=== PATIENT | female | born 1935 | race Caucasian/White ===

== ENCOUNTER 2016-07-02 23:07 | Inpatient (IN) | payer MEDICARE, MEDICAID ==
[~2016-07-02] VITALS: Ht 160 cm; Wt 64.0 kg
[~2016-07-02 23:07] MED LIST: ALEN70TA48 PO; CARV25TA47 PO; DONE5TAB3 PO; ESCI5TAB10 PO; FERR325T30 PO; GLYB5TAB4 PO; KLOR CON PO; LEVO50CA2 PO; LISI20TA PO; LOVA10TA54 PO; RIVA20TA PO
[2016-07-03 01:10] LABS: BASOPHILS % 0.3 % (0.0-2.0); DIFFERENTIAL COMMENT 0; EOSINOPHILS % 2.3 % (0.0-5.0); HEMATOCRIT. 27.2 % (36.0-48.0); HEMOGLOBIN. 8.9 g/dL (12.0-16.0); LYMPHOCYTES % 9.6 % (20.0-50.0); MEAN CORPUSCULAR HGB CONC 32.9 g/dL (31.0-37.0); MEAN CORPUSCULAR VOLUME 79.2 fL (81.0-99.0); MEAN PLATELET VOLUME 6.8 fl (7.4-10.4); NEUTROPHILS % 77.8 % (40.0-76.0); PLATELET 155 x1000/uL (130-400); RED BLOOD CELL COUNT 3.44 mill/uL (4.2-5.4); RED CELL DISTRIBUTION WIDTH 15.3 % (11.6-14.6); WHITE BLOOD COUNT 6.3 x1000/uL (4.5-11.0)
[2016-07-03 01:21] LABS: INR 1.3; PARTIAL THROMBOPLASTIN TIME 27.8 sec (24.0-34.0); PROTHROMBIN TIME 13.3 sec
[2016-07-03 01:25] LABS: ALANINE AMINOTRANSFERASE 18 IU/L (13-61); ALBUMIN 3.7 g/dL (3.4-5.0); ANION GAP 14; CALCIUM 9.2 mg/dL (8.5-10.1); CARBON DIOXIDE 35 mEq/L (21-32); CHLORIDE 91 mEq/L (98-107); INDEX HEMOLYSI 1 (1-3); INDEX ICTERIC 1 (1-4); INDEX LIPEMIC 1 (1-3); LIPASE 835 IU/L (73-393); TROPONIN I 0.05 ng/mL (0.00-0.04); eGFR 24 mL/min (>60)
[2016-07-03 02:06] LABS: UREA NITROGEN BLOOD 114 mg/dL (7-21)
[2016-07-03 09:25] VITALS: BP 105/76
[2016-07-03 09:30] VITALS: BP 105/76
[2016-07-03] MEDS ORDERED: DIPHENHYDRAMINE 50MG/ML VIAL IV PRN (11:15)
[2016-07-03] MEDS ORDERED: MAGNESIUM/ALUMINUM HYDROXIDE/SIMETHICONE 30ML UDC PO PRN (11:15)
[2016-07-03] MEDS ORDERED: CLONIDINE 0.1MG TABLET PO PRN (11:15)
[2016-07-03] MEDS ORDERED: ONDANSETRON HCL 4MG/2ML VIAL IV PRN (11:15)
[2016-07-03] MEDS ORDERED: DOCUSATE SODIUM 100MG CAPSULE PO PRN (11:15)
[2016-07-03] MEDS ORDERED: ACETAMINOPHEN 650MG/20.3ML UDC GT PRN (11:15)
[2016-07-03] MEDS ORDERED: FURO-151 PO ×2 (11:28→15:35)
[2016-07-03] MEDS ORDERED: GLIP5TAB12 PO (11:28)
[2016-07-03] MEDS ORDERED: METO2.5T14 PO (11:28)
[2016-07-03] MEDS ORDERED: APIX2.5T PO (11:28)
[2016-07-03 12:29] VITALS: BP 105/58
[2016-07-03] MEDS: SODIUM CHLORIDE 0.45% 1,000 ML IV SCH (13:17)
[2016-07-03 15:02] LABS: CLARITY URINE CLEAR (CLEAR); COLOR URINE YELLOW (YELLOW); GLUCOSE URINE NEGATIVE (NEGATIVE); KETONES URINE NEGATIVE (NEGATIVE); LEUKOCYTE ESTERASE URINE NEGATIVE (NEGATIVE); NITRITE URINE NEGATIVE (NEGATIVE); OCCULT BLOOD URINE NEGATIVE (NEGATIVE); PROTEIN URINE NEGATIVE (NEGATIVE); SPECIFIC GRAVITY URINE 1.012 (1.005-1.030); UROBILINOGEN URINE 0.2 E.U./dL (0.2-1.0)
[2016-07-03] MEDS ORDERED: FUROSEMIDE 40MG TABLET PO SCH (15:15)
[2016-07-03] MEDS: LISINOPRIL 20MG TABLET PO SCH (15:15)
[2016-07-03] MEDS ORDERED: DEXTROSE 50% WATER 50ML SYRINGE IV PRN (15:15)
[2016-07-03 16:00] VITALS: BP 104/71
[2016-07-03] MEDS: LEVOTHYROXINE SODIUM 50MCG TABLET PO SCH (16:23)
[2016-07-03] MEDS: BLOOD SUGAR DIAGNOSTIC STRIP TEST SCH ×2 (16:23→21:20)
[2016-07-03] MEDS: APIXABAN 2.5 MG TABLET PO SCH (18:58)
[2016-07-03] MEDS: INSULIN LISPRO 100 UNITS/ML SUBCUT SCH ×2 (18:59→21:29)
[2016-07-03 20:00] VITALS: BP 105/51
[2016-07-04] VITALS: BP 95/58
[2016-07-04 04:00] VITALS: BP 93/61
[2016-07-04] MEDS: INSULIN LISPRO 100 UNITS/ML SUBCUT SCH (05:53)
[2016-07-04] MEDS: BLOOD SUGAR DIAGNOSTIC STRIP TEST SCH ×2 (05:53→11:16)
[2016-07-04] MEDS: LEVOTHYROXINE SODIUM 50MCG TABLET PO SCH (06:40)
[2016-07-04] MEDS ORDERED: GLIPIZIDE 5MG TABLET PO SCH (06:45)
[2016-07-04 08:53] VITALS: BP 103/58
[2016-07-04 08:56] LABS: BASOPHILS % 0.7 % (0.0-2.0); DIFFERENTIAL COMMENT 0; HEMATOCRIT. 29.3 % (36.0-48.0); HEMOGLOBIN. 9.6 g/dL (12.0-16.0); LYMPHOCYTES % 11.3 % (20.0-50.0); MEAN CORPUSCULAR HEMOGLOBIN 25.9 pg (28.0-32.0); MEAN CORPUSCULAR HGB CONC 32.7 g/dL (31.0-37.0); MEAN PLATELET VOLUME 7.2 fl (7.4-10.4); MONOCYTES % 8.9 % (2.0-8.0); NEUTROPHILS % 77.1 % (40.0-76.0); PLATELET 175 x1000/uL (130-400); RED BLOOD CELL COUNT 3.72 mill/uL (4.2-5.4); RED CELL DISTRIBUTION WIDTH 14.9 % (11.6-14.6); WHITE BLOOD COUNT 6.3 x1000/uL (4.5-11.0)
[2016-07-04] MEDS ORDERED: FUROSEMIDE 40MG TABLET PO SCH (09:00)
[2016-07-04 09:19] LABS: CALCIUM 9.5 mg/dL (8.5-10.1)
[2016-07-04] MEDS: APIXABAN 2.5 MG TABLET PO SCH (09:35)
[2016-07-04] MEDS: LISINOPRIL 20MG TABLET PO SCH (09:36)
[2016-07-04] MEDS: SODIUM CHLORIDE 0.45% 1,000 ML IV SCH (10:00)
[2016-07-04] MEDS ORDERED: FURO40TA5 PO (10:47)
[2016-07-04 12:03] VITALS: BP 103/58
[2016-07-04 12:30] VITALS: BP 121/80
== END 2016-07-04 13:15 | disposition home or self-care (01) | DRG 314 ==
LOC: ER 23:11 → 5WST 07-03 05:00 → SUPCPDRO 07-03 05:59
PROVIDERS: ADMIT Family Medicine Adult Medicine; ATTEND Family Medicine Adult Medicine
DX: I95.9 Hypotension, unspecified (principal); K85.90 Acute pancreatitis without necrosis or infection, unspecified; I13.0 Hypertensive heart and chronic kidney disease with heart failure and stage 1 through stage 4 chronic kidney disease, or unspecified chronic kidney disease; N17.9 Acute kidney failure, unspecified; E87.3 Alkalosis; E87.1 Hypo-osmolality and hyponatremia; R18.8 Other ascites; I42.9 Cardiomyopathy, unspecified; N18.3 Chronic kidney disease, stage 3 (moderate); I25.10 Atherosclerotic heart disease of native coronary artery without angina pectoris; D64.9 Anemia, unspecified; M19.90 Unspecified osteoarthritis, unspecified site; E11.22 Type 2 diabetes mellitus with diabetic chronic kidney disease; I25.5 Ischemic cardiomyopathy; I27.2 Other secondary pulmonary hypertension; I27.81 Cor pulmonale (chronic); I48.2 Chronic atrial fibrillation; I50.9 Heart failure, unspecified; Z79.01 Long term (current) use of anticoagulants; I25.2 Old myocardial infarction; Z95.810 Presence of automatic (implantable) cardiac defibrillator; Z28.82 Immunization not carried out because of caregiver refusal; K76.9 Liver disease, unspecified; T46.5X5A Adverse effect of other antihypertensive drugs, initial encounter
CPT/HCPCS: 36415; 71010; 76770; 80048; 80053; 81003; 82962; 83690; 84484; 85025; 85610; 85730; 87086; 93005; 99285; J1815

== ENCOUNTER 2017-01-27 12:25 | Inpatient (IN) | payer MEDICARE, MEDICAID ==
[~2017-01-27] VITALS: Ht 152.4 cm; Wt 64.1 kg
[~2017-01-27 12:25] MED LIST changes: +APIX2.5T PO; -DONE5TAB3 PO; +DONE5TAB7 PO; +FURO20TA4 PO; +FURO40TA5 PO; +GLIP5TAB12 PO; +METO2.5T14 PO; +SITA50TA3 PO
[2017-01-27 13:08] LABS: BASOPHILS % 0.6 % (0.0-2.0); EOSINOPHILS % 2.1 % (0.0-5.0); HEMATOCRIT. 30.2 % (36.0-48.0); HEMOGLOBIN. 9.7 g/dL (12.0-16.0); LYMPHOCYTES % 10.7 % (20.0-50.0); MEAN CORPUSCULAR HEMOGLOBIN 25.9 pg (28.0-32.0); MEAN CORPUSCULAR VOLUME 80.2 fL (81.0-99.0); MEAN PLATELET VOLUME 6.6 fl (7.4-10.4); MONOCYTES % 7.7 % (2.0-8.0); NEUTROPHILS % 78.9 % (40.0-76.0); PLATELET 181 x1000/uL (130-400); RED BLOOD CELL COUNT 3.76 mill/uL (4.2-5.4)
[2017-01-27 13:17] LABS: INR 1.2; PROTHROMBIN TIME 12.3 sec (9.4-11.6)
[2017-01-27 13:22] LABS: CARBON DIOXIDE 36 mEq/L (21-32); CHLORIDE 83 mEq/L (98-107)
[2017-01-27 13:23] LABS: TROPONIN I 0.05 ng/mL (0.00-0.04)
[2017-01-27] MEDS ORDERED: FUROSEMIDE 40MG/4ML VIAL IVP ONE (15:00)
[2017-01-27] MEDS ORDERED: DOBUTAMINE 250MG PREMIX 250 ML IV SCH (15:15)
[2017-01-27 16:53] VITALS: BP 100/54
[2017-01-27] MEDS ORDERED: DOPAMINE 800MG PREMIX 250 ML IV SCH (18:00)
[2017-01-27] MEDS: CARVEDILOL 3.125 MG TABLET PO SCH (18:50)
[2017-01-27] MEDS: FUROSEMIDE 40MG/4ML VIAL IVP SCH (18:50)
[2017-01-27] MEDS ORDERED: ONDANSETRON HCL 4MG/2ML VIAL IV PRN (19:00)
[2017-01-27 19:01] VITALS: BP 118/62
[2017-01-27] MEDS ORDERED: TRAMADOL 50MG TABLET PO PRN (19:06)
[2017-01-27] MEDS ORDERED: DEXTROSE 50% WATER 50ML SYRINGE IV PRN (19:30)
[2017-01-27 20:09] VITALS: BP 119/53
[2017-01-27 21:00] VITALS: BP 122/68
[2017-01-27] MEDS: BLOOD SUGAR DIAGNOSTIC STRIP TEST SCH (21:00)
[2017-01-27] MEDS: INSULIN LISPRO 100 UNITS/ML SUBCUT SCH (21:04)
[2017-01-27 22:00] VITALS: BP 117/75
[2017-01-27 23:00] VITALS: BP 111/59
[2017-01-28] VITALS (19 sets, daily range): BP systolic 89–129; BP diastolic 26–73
[2017-01-28] MEDS: BLOOD SUGAR DIAGNOSTIC STRIP TEST SCH ×4 (05:53→21:09)
[2017-01-28] MEDS: OMEPRAZOLE 20MG CAPSULE EXTENDED RELEASE PO SCH (05:53)
[2017-01-28 07:06] LABS: BASOPHILS % 0.7 % (0.0-2.0); EOSINOPHILS % 2.2 % (0.0-5.0); HEMATOCRIT. 28.1 % (36.0-48.0); HEMOGLOBIN. 9.3 g/dL (12.0-16.0); LYMPHOCYTES % 16.1 % (20.0-50.0); MEAN CORPUSCULAR HEMOGLOBIN 26.4 pg (28.0-32.0); MEAN CORPUSCULAR VOLUME 79.5 fL (81.0-99.0); MEAN PLATELET VOLUME 7.2 fl (7.4-10.4); MONOCYTES % 11.2 % (2.0-8.0); NEUTROPHILS % 69.8 % (40.0-76.0); PLATELET 177 x1000/uL (130-400); RED BLOOD CELL COUNT 3.54 mill/uL (4.2-5.4); RED CELL DISTRIBUTION WIDTH 14.8 % (11.6-14.6)
[2017-01-28] MEDS: INSULIN LISPRO 100 UNITS/ML SUBCUT SCH ×4 (07:20→21:12)
[2017-01-28 07:31] LABS: TROPONIN I 0.06 ng/mL (0.00-0.04)
[2017-01-28] MEDS: CARVEDILOL 3.125 MG TABLET PO SCH (08:20)
[2017-01-28] MEDS: FUROSEMIDE 40MG/4ML VIAL IVP SCH ×2 (08:20→17:15)
[2017-01-28 10:15] LABS: T4 FREE 1.32 ng/dL (0.76-1.46)
[2017-01-28] MEDS ORDERED: IPRATROPIUM BROMIDE (0.02%) 0.5MG/2.5ML NEB HHN PRN (10:30)
[2017-01-28] MEDS: LEVOTHYROXINE SODIUM 75MCG TABLET PO SCH (11:01)
[2017-01-28] MEDS: POTASSIUM CHLORIDE 20MEQ TABLET SR PO SCH (11:01)
[2017-01-28] MEDS: DOBUTAMINE 250MG PREMIX 250 ML IV SCH (11:14)
[2017-01-28] MEDS: DOPAMINE 800MG PREMIX 250 ML IV SCH (11:23)
[2017-01-28] MEDS: ENOXAPARIN 30MG/0.3ML SYR SUBCUT SCH (13:03)
[2017-01-28] MEDS ORDERED: FUROSEMIDE 20MG/2ML VIAL IVP SCH (17:15)
[2017-01-28] MEDS: FERROUS SULFATE 325MG TABLET PO SCH (17:15)
[2017-01-28] MEDS: ATORVASTATIN CALCIUM 10MG TABLET PO SCH (21:08)
[2017-01-29] VITALS (20 sets, daily range): BP systolic 93–125; BP diastolic 41–65
[2017-01-29 05:56] LABS: BASOPHILS % 0.4 % (0.0-2.0); EOSINOPHILS % 1.2 % (0.0-5.0); HEMATOCRIT. 26.5 % (36.0-48.0); HEMOGLOBIN. 8.7 g/dL (12.0-16.0); LYMPHOCYTES % 11.5 % (20.0-50.0); MEAN CORPUSCULAR HEMOGLOBIN 26.4 pg (28.0-32.0); MEAN CORPUSCULAR VOLUME 79.8 fL (81.0-99.0); MEAN PLATELET VOLUME 7.1 fl (7.4-10.4); MONOCYTES % 10.3 % (2.0-8.0); NEUTROPHILS % 76.6 % (40.0-76.0); PLATELET 167 x1000/uL (130-400); RED BLOOD CELL COUNT 3.32 mill/uL (4.2-5.4); RED CELL DISTRIBUTION WIDTH 14.9 % (11.6-14.6)
[2017-01-29] MEDS: OMEPRAZOLE 20MG CAPSULE EXTENDED RELEASE PO SCH (06:22)
[2017-01-29] MEDS: LEVOTHYROXINE SODIUM 75MCG TABLET PO SCH (06:22)
[2017-01-29] MEDS: BLOOD SUGAR DIAGNOSTIC STRIP TEST SCH ×4 (06:24→21:10)
[2017-01-29] MEDS: FERROUS SULFATE 325MG TABLET PO SCH ×2 (08:09→17:34)
[2017-01-29] MEDS: FUROSEMIDE 40MG/4ML VIAL IVP SCH (08:10)
[2017-01-29] MEDS: DONEPEZIL HCL 5MG TABLET PO SCH (08:10)
[2017-01-29] MEDS: POTASSIUM CHLORIDE 20MEQ TABLET SR PO SCH (08:10)
[2017-01-29] MEDS: INSULIN LISPRO 100 UNITS/ML SUBCUT SCH ×4 (08:11→21:20)
[2017-01-29] MEDS: ENOXAPARIN 30MG/0.3ML SYR SUBCUT SCH (10:02)
[2017-01-29] MEDS: DOBUTAMINE 250MG PREMIX 250 ML IV SCH (13:38)
[2017-01-29 17:48] LABS: CLARITY URINE CLEAR (CLEAR); COLOR URINE YELLOW (YELLOW); GLUCOSE URINE NEGATIVE (NEGATIVE); KETONES URINE NEGATIVE (NEGATIVE); LEUKOCYTE ESTERASE URINE NEGATIVE (NEGATIVE); NITRITE URINE NEGATIVE (NEGATIVE); OCCULT BLOOD URINE NEGATIVE (NEGATIVE); PROTEIN URINE NEGATIVE (NEGATIVE); UROBILINOGEN URINE 0.2 E.U./dL (0.2-1.0)
[2017-01-29 18:41] LABS: HEMATOCRIT 25.7 % (36.0-48.0); HEMOGLOBIN 8.4 g/dL (12.0-16.0)
[2017-01-29] MEDS: ATORVASTATIN CALCIUM 10MG TABLET PO SCH (21:21)
[2017-01-30] VITALS (12 sets, daily range): BP systolic 72–125; BP diastolic 40–83
[2017-01-30] MEDS: DOBUTAMINE 250MG PREMIX 250 ML IV SCH ×2 (01:41→17:11)
[2017-01-30] MEDS: LEVOTHYROXINE SODIUM 75MCG TABLET PO SCH (06:23)
[2017-01-30] MEDS: OMEPRAZOLE 20MG CAPSULE EXTENDED RELEASE PO SCH (06:23)
[2017-01-30 06:39] LABS: BASOPHILS % 0.2 % (0.0-2.0); EOSINOPHILS % 0.7 % (0.0-5.0); HEMATOCRIT. 25.7 % (36.0-48.0); HEMOGLOBIN. 8.5 g/dL (12.0-16.0); LYMPHOCYTES % 10.2 % (20.0-50.0); MEAN CORPUSCULAR HEMOGLOBIN 26.3 pg (28.0-32.0); MEAN CORPUSCULAR VOLUME 79.7 fL (81.0-99.0); MONOCYTES % 10.4 % (2.0-8.0); NEUTROPHILS % 78.5 % (40.0-76.0); PLATELET 156 x1000/uL (130-400); RED BLOOD CELL COUNT 3.22 mill/uL (4.2-5.4)
[2017-01-30] MEDS: BLOOD SUGAR DIAGNOSTIC STRIP TEST SCH ×4 (06:48→20:47)
[2017-01-30] MEDS: ENOXAPARIN 30MG/0.3ML SYR SUBCUT SCH (08:25)
[2017-01-30] MEDS: DONEPEZIL HCL 5MG TABLET PO SCH (08:31)
[2017-01-30] MEDS: POTASSIUM CHLORIDE 20MEQ TABLET SR PO SCH (08:31)
[2017-01-30] MEDS: FERROUS SULFATE 325MG TABLET PO SCH ×2 (08:32→17:46)
[2017-01-30] MEDS: INSULIN LISPRO 100 UNITS/ML SUBCUT SCH ×4 (08:33→21:05)
[2017-01-30] MEDS: ATORVASTATIN CALCIUM 10MG TABLET PO SCH (21:05)
[2017-01-31] VITALS (15 sets, daily range): BP systolic 103–143; BP diastolic 48–87
[2017-01-31 06:40] LABS: BASOPHILS % 0.2 % (0.0-2.0); EOSINOPHILS % 0.7 % (0.0-5.0); HEMATOCRIT. 26.3 % (36.0-48.0); HEMOGLOBIN. 8.6 g/dL (12.0-16.0); MEAN CORPUSCULAR HEMOGLOBIN 26.1 pg (28.0-32.0); MEAN CORPUSCULAR VOLUME 79.9 fL (81.0-99.0); MEAN PLATELET VOLUME 7.1 fl (7.4-10.4); MONOCYTES % 10.4 % (2.0-8.0); NEUTROPHILS % 80.7 % (40.0-76.0); PLATELET 147 x1000/uL (130-400); RED BLOOD CELL COUNT 3.29 mill/uL (4.2-5.4); RED CELL DISTRIBUTION WIDTH 15.1 % (11.6-14.6)
[2017-01-31] MEDS: BLOOD SUGAR DIAGNOSTIC STRIP TEST SCH ×4 (06:53→20:27)
[2017-01-31] MEDS: LEVOTHYROXINE SODIUM 75MCG TABLET PO SCH (06:55)
[2017-01-31] MEDS: FERROUS SULFATE 325MG TABLET PO SCH ×2 (07:56→17:47)
[2017-01-31] MEDS: FAMOTIDINE 20MG TABLET PO SCH (08:03)
[2017-01-31] MEDS: POTASSIUM CHLORIDE 20MEQ TABLET SR PO SCH (08:03)
[2017-01-31] MEDS: DOBUTAMINE 250MG PREMIX 250 ML IV SCH ×2 (08:03→19:18)
[2017-01-31] MEDS: DONEPEZIL HCL 5MG TABLET PO SCH (08:03)
[2017-01-31] MEDS: INSULIN LISPRO 100 UNITS/ML SUBCUT SCH ×4 (08:04→21:44)
[2017-01-31] MEDS: ENOXAPARIN 30MG/0.3ML SYR SUBCUT SCH (09:00)
[2017-01-31] MEDS ORDERED: SODIUM BICARBONATE 4% (2.4MEQ) 5ML VIAL IV ONE (12:51)
[2017-01-31] MEDS ORDERED: LIDOCAINE HCL 1% 20ML VIAL (Pyxis) INJ ONE (12:52)
[2017-01-31] MEDS: ATORVASTATIN CALCIUM 10MG TABLET PO SCH (20:25)
[2017-02-01] VITALS (18 sets, daily range): BP systolic 94–133; BP diastolic 28–76
[2017-02-01] MEDS: DOPAMINE 800MG PREMIX 250 ML IV SCH (03:59)
[2017-02-01] MEDS: LEVOTHYROXINE SODIUM 75MCG TABLET PO SCH (06:06)
[2017-02-01] MEDS: BLOOD SUGAR DIAGNOSTIC STRIP TEST SCH ×4 (06:09→20:31)
[2017-02-01] MEDS: INSULIN LISPRO 100 UNITS/ML SUBCUT SCH ×4 (07:20→20:44)
[2017-02-01 07:32] LABS: BASOPHILS % 0.3 % (0.0-2.0); EOSINOPHILS % 0.9 % (0.0-5.0); HEMATOCRIT. 27.2 % (36.0-48.0); HEMOGLOBIN. 8.7 g/dL (12.0-16.0); MEAN CORPUSCULAR HEMOGLOBIN 25.4 pg (28.0-32.0); MEAN CORPUSCULAR VOLUME 79.3 fL (81.0-99.0); MEAN PLATELET VOLUME 7.3 fl (7.4-10.4); MONOCYTES % 11.7 % (2.0-8.0); NEUTROPHILS % 79.1 % (40.0-76.0); PLATELET 157 x1000/uL (130-400); RED BLOOD CELL COUNT 3.43 mill/uL (4.2-5.4); RED CELL DISTRIBUTION WIDTH 15.1 % (11.6-14.6)
[2017-02-01] MEDS: POTASSIUM CHLORIDE 20MEQ TABLET SR PO SCH (09:26)
[2017-02-01] MEDS: FERROUS SULFATE 325MG TABLET PO SCH ×2 (09:26→16:56)
[2017-02-01] MEDS: DONEPEZIL HCL 5MG TABLET PO SCH (09:26)
[2017-02-01] MEDS: FAMOTIDINE 20MG TABLET PO SCH (09:26)
[2017-02-01] MEDS: DOBUTAMINE 250MG PREMIX 250 ML IV SCH (09:33)
[2017-02-01] MEDS ORDERED: FUROSEMIDE 40MG/4ML VIAL IVP NR (10:30)
[2017-02-01] MEDS ORDERED: ENOXAPARIN 60MG/0.6ML SYR SUBCUT SCH (12:00)
[2017-02-01] MEDS: ATORVASTATIN CALCIUM 10MG TABLET PO SCH (20:33)
[2017-02-02] VITALS (16 sets, daily range): BP systolic 94–136; BP diastolic 42–84
[2017-02-02] MEDS: DOBUTAMINE 250MG PREMIX 250 ML IV SCH ×2 (00:51→13:21)
[2017-02-02] MEDS: BLOOD SUGAR DIAGNOSTIC STRIP TEST SCH ×4 (06:02→20:49)
[2017-02-02] MEDS: LEVOTHYROXINE SODIUM 75MCG TABLET PO SCH (06:03)
[2017-02-02 06:24] LABS: BASOPHILS % 0.3 % (0.0-2.0); EOSINOPHILS % 1.6 % (0.0-5.0); HEMATOCRIT. 25.6 % (36.0-48.0); HEMOGLOBIN. 8.4 g/dL (12.0-16.0); LYMPHOCYTES % 11.2 % (20.0-50.0); MEAN CORPUSCULAR HEMOGLOBIN 26.3 pg (28.0-32.0); MEAN CORPUSCULAR VOLUME 80.2 fL (81.0-99.0); MEAN PLATELET VOLUME 7.1 fl (7.4-10.4); MONOCYTES % 12.6 % (2.0-8.0); NEUTROPHILS % 74.3 % (40.0-76.0); PLATELET 146 x1000/uL (130-400); RED CELL DISTRIBUTION WIDTH 15.1 % (11.6-14.6)
[2017-02-02] MEDS: INSULIN LISPRO 100 UNITS/ML SUBCUT SCH ×4 (07:47→21:44)
[2017-02-02] MEDS: FAMOTIDINE 20MG TABLET PO SCH (08:28)
[2017-02-02] MEDS: FERROUS SULFATE 325MG TABLET PO SCH ×2 (08:28→17:26)
[2017-02-02] MEDS: DONEPEZIL HCL 5MG TABLET PO SCH (08:28)
[2017-02-02] MEDS ORDERED: LIDOCAINE HCL 1% 20ML VIAL (Pyxis) INJ ONE (08:48)
[2017-02-02] MEDS ORDERED: SODIUM BICARBONATE 4% (2.4MEQ) 5ML VIAL IV ONE (08:48)
[2017-02-02] MEDS ORDERED: TRAMADOL 50MG TABLET PO PRN (12:15)
[2017-02-02 14:09] LABS: INR 1.2; PARTIAL THROMBOPLASTIN TIME 28.7 sec (23.4-31.0); PROTHROMBIN TIME 12.5 sec (9.4-11.6)
[2017-02-02] MEDS: ATORVASTATIN CALCIUM 10MG TABLET PO SCH (21:39)
[2017-02-03] VITALS (12 sets, daily range): BP systolic 98–135; BP diastolic 47–76
[2017-02-03] MEDS: DOBUTAMINE 250MG PREMIX 250 ML IV SCH (03:49)
[2017-02-03] MEDS: LEVOTHYROXINE SODIUM 75MCG TABLET PO SCH (06:13)
[2017-02-03] MEDS: BLOOD SUGAR DIAGNOSTIC STRIP TEST SCH ×2 (06:14→12:14)
[2017-02-03 06:35] LABS: BASOPHILS % 0.4 % (0.0-2.0); EOSINOPHILS % 1.8 % (0.0-5.0); HEMOGLOBIN. 8.1 g/dL (12.0-16.0); LYMPHOCYTES % 11.1 % (20.0-50.0); MEAN CORPUSCULAR HEMOGLOBIN 26.8 pg (28.0-32.0); MEAN CORPUSCULAR VOLUME 79.6 fL (81.0-99.0); MEAN PLATELET VOLUME 7.2 fl (7.4-10.4); MONOCYTES % 12.1 % (2.0-8.0); NEUTROPHILS % 74.6 % (40.0-76.0); PLATELET 148 x1000/uL (130-400); RED BLOOD CELL COUNT 3.02 mill/uL (4.2-5.4); RED CELL DISTRIBUTION WIDTH 15.1 % (11.6-14.6)
[2017-02-03 07:50] LABS: PHOSPHORUS 2.3 mg/dL (2.5-4.9)
[2017-02-03] MEDS: FAMOTIDINE 20MG TABLET PO SCH (08:17)
[2017-02-03] MEDS: FERROUS SULFATE 325MG TABLET PO SCH (08:17)
[2017-02-03] MEDS: DONEPEZIL HCL 5MG TABLET PO SCH (08:17)
[2017-02-03] MEDS: INSULIN LISPRO 100 UNITS/ML SUBCUT SCH ×2 (08:18→12:12)
== END 2017-02-03 17:00 | disposition home health service (06) | DRG 291 ==
LOC: ER 13:13 → ENRESERV 15:45 → 3WST 16:20
PROVIDERS: ADMIT Family Medicine Adult Medicine; ATTEND Family Medicine Adult Medicine
PROC: 02H633Z Insertion of Infusion Device into Right Atrium, Percutaneous Approach (ICD-10-PCS; principal; 2017-01-28)
PROC: B244ZZZ Ultrasonography of Right Heart (ICD-10-PCS; 2017-01-28)
PROC: 0W9G3ZX Drainage of Peritoneal Cavity, Percutaneous Approach, Diagnostic (ICD-10-PCS; 2017-01-31)
DX: I13.0 Hypertensive heart and chronic kidney disease with heart failure and stage 1 through stage 4 chronic kidney disease, or unspecified chronic kidney disease (principal); J96.20 Acute and chronic respiratory failure, unspecified whether with hypoxia or hypercapnia; N17.9 Acute kidney failure, unspecified; K85.90 Acute pancreatitis without necrosis or infection, unspecified; E87.3 Alkalosis; R18.8 Other ascites; I50.23 Acute on chronic systolic (congestive) heart failure; E87.1 Hypo-osmolality and hyponatremia; I42.0 Dilated cardiomyopathy; I27.29 Other secondary pulmonary hypertension; E11.22 Type 2 diabetes mellitus with diabetic chronic kidney disease; I27.81 Cor pulmonale (chronic); N18.9 Chronic kidney disease, unspecified; I48.2 Chronic atrial fibrillation; D63.8 Anemia in other chronic diseases classified elsewhere; E03.9 Hypothyroidism, unspecified; E78.5 Hyperlipidemia, unspecified; F03.90 Unspecified dementia, unspecified severity, without behavioral disturbance, psychotic disturbance, mood disturbance, and anxiety; I25.5 Ischemic cardiomyopathy; Z79.01 Long term (current) use of anticoagulants; Z99.81 Dependence on supplemental oxygen; Z95.810 Presence of automatic (implantable) cardiac defibrillator; Z79.899 Other long term (current) drug therapy
CPT/HCPCS: 36415; 36569; 49083; 71010; 76770; 76937; 80048; 80053; 81003; 82570; 82945; 82962; 83036; 83615; 83735; 83880; 84100; 84156; 84157; 84300; 84439; 84443; 84481; 84484; 85014; 85018; 85025; 85610; 85730; 86850; 86900; 87070; 87205; 88108; 88312; 93005; 93306; 93970; 96374; 97116; 97162; 97166; 99291; C1725; J1250; J1265; J1650; J1815; J1940; J2405; J3490; J7040

== ENCOUNTER → 2017-06-21 | Day surgery (SDC) | payer MEDICARE, MEDICAID ==
[~2017-06-21] MED LIST changes: -ALEN70TA48 PO; -FURO20TA4 PO; -GLYB5TAB4 PO; -KLOR CON PO; +LIDOCAINE HCL/PF 1% 10 MG/ML 5ML VIAL ONE; -RIVA20TA PO; +SODIUM BICARBONATE 4% (2.4MEQ) 5ML VIAL IV ONE
== END | disposition home or self-care (01) ==
LOC: RAD 09:21
PROVIDERS: ATTEND Family Medicine Adult Medicine
DX: R18.8 Other ascites (principal); D63.1 Anemia in chronic kidney disease; I42.0 Dilated cardiomyopathy; E03.8 Other specified hypothyroidism; I48.0 Paroxysmal atrial fibrillation; I13.0 Hypertensive heart and chronic kidney disease with heart failure and stage 1 through stage 4 chronic kidney disease, or unspecified chronic kidney disease; E11.22 Type 2 diabetes mellitus with diabetic chronic kidney disease; I50.23 Acute on chronic systolic (congestive) heart failure; N18.3 Chronic kidney disease, stage 3 (moderate); Z95.810 Presence of automatic (implantable) cardiac defibrillator; E78.4 Other hyperlipidemia; Z79.899 Other long term (current) drug therapy
CPT/HCPCS: 49083; J3490

== ENCOUNTER → 2017-08-09 | Day surgery (SDC) | payer MEDICARE, MEDICAID ==
[~2017-08-09] MED LIST changes: +LIDOCAINE HCL/PF 1% 10 MG/ML 30ML VIAL ONE; -LIDOCAINE HCL/PF 1% 10 MG/ML 5ML VIAL ONE
== END | disposition home or self-care (01) ==
LOC: RAD 12:36
PROVIDERS: ATTEND Specialist
DX: R18.8 Other ascites (principal); I13.0 Hypertensive heart and chronic kidney disease with heart failure and stage 1 through stage 4 chronic kidney disease, or unspecified chronic kidney disease; E11.22 Type 2 diabetes mellitus with diabetic chronic kidney disease; N18.3 Chronic kidney disease, stage 3 (moderate); I50.9 Heart failure, unspecified; E78.5 Hyperlipidemia, unspecified; E03.9 Hypothyroidism, unspecified; Z79.01 Long term (current) use of anticoagulants; Z79.899 Other long term (current) drug therapy; Z95.810 Presence of automatic (implantable) cardiac defibrillator
CPT/HCPCS: 49083; J3490

== ENCOUNTER → 2017-09-23 | Day surgery (SDC) | payer MEDICARE, MEDICAID ==
[~2017-09-23] MED LIST changes: -LIDOCAINE HCL/PF 1% 10 MG/ML 30ML VIAL ONE; -SODIUM BICARBONATE 4% (2.4MEQ) 5ML VIAL IV ONE
== END | disposition home or self-care (01) ==
LOC: RAD 10:59
PROVIDERS: ATTEND Family Medicine Adult Medicine
DX: R18.8 Other ascites (principal); I13.0 Hypertensive heart and chronic kidney disease with heart failure and stage 1 through stage 4 chronic kidney disease, or unspecified chronic kidney disease; E11.22 Type 2 diabetes mellitus with diabetic chronic kidney disease; N18.3 Chronic kidney disease, stage 3 (moderate); E78.5 Hyperlipidemia, unspecified; E03.9 Hypothyroidism, unspecified; Z79.899 Other long term (current) drug therapy; Z79.01 Long term (current) use of anticoagulants; Z95.810 Presence of automatic (implantable) cardiac defibrillator
CPT/HCPCS: 49083

== ENCOUNTER 2017-11-29 11:49 | Inpatient (IN) | payer MEDICARE, MEDICAID ==
[~2017-11-29] VITALS: Ht 160 cm; Wt 61.7 kg
[2017-11-29 12:48] LABS: BG BASE EXCESS 8.2 mmol/L (-2.0-2.0); BG CARBOXYHEMOGLOBIN 0.2 % (0.5-1.5); BG DEOXYHEMOGLOBIN 2.1 % (0.0-5.0); BG HCO3 ACT 35.7 mmol/L (22.0-26.0); BG METHEMOGLOBIN 0.2 % (0.0-1.5); BG OXYGEN SATURATION 97.9 % (92.0-98.5); BG OXYHEMOGLOBIN 97.5 % (94.0-97.0); BG PCO2 67.3 mmHg (35.0-45.0); BG PH 7.343 (7.350-7.450); BG PO2 112.5 mmHg (75.0-100.0); BG SAMPLE SITE RIGHT RADIAL; BG TOTAL HEMOGLOBIN 10.5 g/dL (12.0-18.0); BG VENT MODE NASAL CANNULA
[2017-11-29 12:59] LABS: INR 1.1; PROTHROMBIN TIME 11.4 sec (9.1-11.1)
[2017-11-29 13:01] LABS: CHLORIDE 89 mEq/L (98-107)
[2017-11-29 13:07] LABS: BASOPHILS % 0.4 % (0.0-2.0); BETA HYDROXYBUTYRATE 0.1 mMol/L (0.0-0.3); EOSINOPHILS % 1.1 % (0.0-5.0); HEMATOCRIT. 31.3 % (36.0-48.0); LYMPHOCYTES % 10.2 % (20.0-50.0); MEAN CORPUSCULAR HEMOGLOBIN 26.4 pg (28.0-32.0); MEAN PLATELET VOLUME 7.9 fl (7.4-10.4); MONOCYTES % 8.8 % (2.0-8.0); NEUTROPHILS % 79.5 % (40.0-76.0); PLATELET 184 x1000/uL (130-400); RED BLOOD CELL COUNT 3.78 mill/uL (4.2-5.4); RED CELL DISTRIBUTION WIDTH 15.7 % (11.6-14.6)
[2017-11-29] MEDS ORDERED: SODIUM BICARBONATE 4% (2.4MEQ) 5ML VIAL IV ONE (13:16)
[2017-11-29] MEDS ORDERED: LIDOCAINE HCL 1% 20ML VIAL (Pyxis) INJ ONE (13:16)
[2017-11-29] MEDS ORDERED: CALCIUM CHLORIDE 1GM/10ML SYR IV NR (13:28)
[2017-11-29] MEDS ORDERED: SODIUM POLYSTYRENE SULFONATE 15 G/60 ML BOT PO NR (13:28)
[2017-11-29] MEDS ORDERED: INSULIN REGULAR (HUMULIN R) 300UNITS/3ML IV NR (13:30)
[2017-11-29] MEDS ORDERED: DEXTROSE 50% WATER 50ML SYRINGE IV NR (13:30)
[2017-11-29] MEDS ORDERED: DEXTROSE 50% WATER 50ML SYRINGE IV PRN (14:30)
[2017-11-29] MEDS ORDERED: ONDANSETRON HCL 4MG/2ML INJ IV PRN (14:30)
[2017-11-29] MEDS: FUROSEMIDE 40MG/4ML VIAL IVP SCH ×2 (16:08→21:00)
[2017-11-29] MEDS: BLOOD SUGAR DIAGNOSTIC STRIP TEST SCH ×2 (17:00→21:00)
[2017-11-29 20:30] VITALS: BP 109/49
[2017-11-29 21:00] VITALS: BP 109/49
[2017-11-29] MEDS: INSULIN LISPRO 100 UNITS/ML SUBCUT SCH (21:00)
[2017-11-29 22:00] VITALS: BP 81/40
[2017-11-29] MEDS ORDERED: DEXL30CA3 PO (23:13)
[2017-11-30] VITALS (32 sets, daily range): BP systolic 81–125; BP diastolic 24–71
[2017-11-30] MEDS ORDERED: DEXLANSOPRAZOLE 30 MG PO SCH (02:15)
[2017-11-30] MEDS: BLOOD SUGAR DIAGNOSTIC STRIP TEST SCH ×4 (06:33→21:30)
[2017-11-30] MEDS: PANTOPRAZOLE 40MG DR TABLET PO SCH (06:33)
[2017-11-30 06:50] LABS: BASOPHILS % 0.8 % (0.0-2.0); EOSINOPHILS % 3.1 % (0.0-5.0); HEMATOCRIT. 27.8 % (36.0-48.0); HEMOGLOBIN. 9.2 g/dL (12.0-16.0); LYMPHOCYTES % 15.9 % (20.0-50.0); MEAN CORPUSCULAR HEMOGLOBIN 27.1 pg (28.0-32.0); MEAN CORPUSCULAR VOLUME 81.6 fL (81.0-99.0); MEAN PLATELET VOLUME 7.8 fl (7.4-10.4); MONOCYTES % 11.2 % (2.0-8.0); PLATELET 175 x1000/uL (130-400); RED CELL DISTRIBUTION WIDTH 15.4 % (11.6-14.6)
[2017-11-30] MEDS ORDERED: LEVOTHYROXINE SODIUM 50MCG TABLET PO SCH (06:50)
[2017-11-30 06:51] LABS: INR 1.1; PROTHROMBIN TIME 11.5 sec (9.1-11.1)
[2017-11-30] MEDS: DONEPEZIL HCL 5MG TABLET PO SCH (08:29)
[2017-11-30] MEDS: FERROUS SULFATE 325MG TABLET PO SCH ×2 (08:29→16:59)
[2017-11-30] MEDS ORDERED: INSULIN GLARGINE UD 100 UNITS/ML SYR SUBCUT NR (08:30)
[2017-11-30] MEDS: GLIMEPIRIDE 1MG TABLET PO SCH ×2 (08:33→16:59)
[2017-11-30] MEDS: INSULIN LISPRO 100 UNITS/ML SUBCUT SCH ×4 (08:34→22:00)
[2017-11-30] MEDS ORDERED: LEVOTHYROXINE SODIUM 50 MCG PO SCH (09:00)
[2017-11-30] MEDS ORDERED: FUROSEMIDE 40MG TABLET PO SCH ×2 (09:00)
[2017-11-30] MEDS ORDERED: LISINOPRIL 5MG TABLET PO SCH (09:00)
[2017-11-30] MEDS ORDERED: GLIPIZIDE 5MG TABLET PO SCH (09:00)
[2017-11-30] MEDS ORDERED: CARVEDILOL 6.25 MG TABLET PO SCH (09:00)
[2017-11-30] MEDS ORDERED: LINAGLIPTIN 5MG TABLET PO SCH (09:00)
[2017-11-30] MEDS ORDERED: LISINOPRIL 5 MG PO SCH (09:00)
[2017-11-30] MEDS ORDERED: FUROSEMIDE 20MG TABLET PO SCH (09:00)
[2017-11-30] MEDS ORDERED: MEDICATION NOT ON FORMULARY EA (Sitagliptin Phosphate (Januvia) 1 TAB) PO SCH (09:00)
[2017-11-30] MEDS ORDERED: MEDICATION NOT ON FORMULARY EA (Furosemide 1 TAB) PO SCH (09:00)
[2017-11-30] MEDS: LEVOTHYROXINE SODIUM 88MCG TABLET PO SCH (10:05)
[2017-11-30] MEDS ORDERED: DOBUTAMINE HCL 500 MG in DEXT 5% WATER 210 ML IV SCH (10:15)
[2017-11-30] MEDS ORDERED: DOPAMINE 800MG PREMIX 250 ML IV SCH (10:15)
[2017-11-30] MEDS ORDERED: INFLUENZA VIRUS VACCINE(AFLURIA) 0.5ML SYR IM ONE (12:00)
[2017-11-30] MEDS: DOBUTAMINE HCL IN DEXTROSE 5 % 250 ML IV SCH (13:19)
[2017-11-30] MEDS ORDERED: IPRATROPIUM/ALBUTEROL 0.5-3(2.5)MG/3ML NEB HHN PRN (13:30)
[2017-11-30] MEDS: FUROSEMIDE 40MG/4ML VIAL IVP SCH (16:06)
[2017-11-30] MEDS ORDERED: LOVASTATIN 10 MG PO SCH (21:00)
[2017-11-30] MEDS ORDERED: MEDICATION NOT ON FORMULARY EA (Escitalopram Oxalate 5 MG) PO SCH (21:00)
[2017-11-30] MEDS ORDERED: INSULIN GLARGINE UD 100 UNITS/ML SYR SUBCUT SCH (22:00)
[2017-11-30] MEDS: ATORVASTATIN CALCIUM 10MG TABLET PO SCH (22:16)
[2017-11-30] MEDS: CITALOPRAM HYDROBROMIDE 10MG TABLET PO SCH (22:16)
[2017-12-01] VITALS (36 sets, daily range): BP systolic 83–132; BP diastolic 39–79
[2017-12-01] MEDS: LEVOTHYROXINE SODIUM 88MCG TABLET PO SCH (05:47)
[2017-12-01] MEDS: PANTOPRAZOLE 40MG DR TABLET PO SCH (05:48)
[2017-12-01] MEDS: BLOOD SUGAR DIAGNOSTIC STRIP TEST SCH ×4 (05:55→21:46)
[2017-12-01 06:09] LABS: INR 1.1; PROTHROMBIN TIME 11.5 sec (9.1-11.1)
[2017-12-01 06:17] LABS: BASOPHILS % 0.2 % (0.0-2.0); EOSINOPHILS % 0.4 % (0.0-5.0); HEMATOCRIT. 26.3 % (36.0-48.0); HEMOGLOBIN. 8.7 g/dL (12.0-16.0); LYMPHOCYTES % 8.3 % (20.0-50.0); MEAN CORPUSCULAR VOLUME 81.5 fL (81.0-99.0); MEAN PLATELET VOLUME 7.4 fl (7.4-10.4); MONOCYTES % 10.3 % (2.0-8.0); NEUTROPHILS % 80.8 % (40.0-76.0); PLATELET 156 x1000/uL (130-400); RED BLOOD CELL COUNT 3.22 mill/uL (4.2-5.4); RED CELL DISTRIBUTION WIDTH 15.3 % (11.6-14.6)
[2017-12-01] MEDS: INSULIN LISPRO 100 UNITS/ML SUBCUT SCH ×4 (07:20→21:50)
[2017-12-01] MEDS: GLIMEPIRIDE 1MG TABLET PO SCH ×2 (07:20→17:25)
[2017-12-01] MEDS: FUROSEMIDE 40MG/4ML VIAL IVP SCH (09:27)
[2017-12-01] MEDS: DONEPEZIL HCL 5MG TABLET PO SCH (09:43)
[2017-12-01] MEDS: FERROUS SULFATE 325MG TABLET PO SCH ×2 (09:43→17:25)
[2017-12-01] MEDS: POTASSIUM CHLORIDE 20MEQ TABLET SR PO SCH (09:56)
[2017-12-01] MEDS ORDERED: LIDOCAINE HCL 1% 20ML VIAL (Pyxis) INJ ONE ×2 (10:43→11:48)
[2017-12-01] MEDS ORDERED: SODIUM BICARBONATE 4% (2.4MEQ) 5ML VIAL IV ONE (10:44)
[2017-12-01] MEDS: DOBUTAMINE HCL IN DEXTROSE 5 % 250 ML IV SCH (17:28)
[2017-12-01] MEDS: ATORVASTATIN CALCIUM 10MG TABLET PO SCH (21:50)
[2017-12-01] MEDS: CITALOPRAM HYDROBROMIDE 10MG TABLET PO SCH (21:50)
[2017-12-01] MEDS ORDERED: INSULIN GLARGINE UD 100 UNITS/ML SYR SUBCUT SCH ×2 (22:00)
[2017-12-02] VITALS (13 sets, daily range): BP systolic 99–114; BP diastolic 35–62
[2017-12-02 06:15] LABS: CHLORIDE 94 mEq/L (98-107)
[2017-12-02 06:23] LABS: HEMATOCRIT 27.7 % (36.0-48.0); HEMOGLOBIN 9.2 g/dL (12.0-16.0); MEAN CORPUSCULAR HEMOGLOBIN 27.1 pg (28.0-32.0); MEAN CORPUSCULAR VOLUME 81.4 fL (81.0-99.0); PLATELET 159 x1000/uL (130-400); RED BLOOD CELL COUNT 3.41 mill/uL (4.2-5.4); RED CELL DISTRIBUTION WIDTH 15.1 % (11.6-14.6)
[2017-12-02] MEDS: BLOOD SUGAR DIAGNOSTIC STRIP TEST SCH ×4 (06:37→20:32)
[2017-12-02] MEDS: LEVOTHYROXINE SODIUM 88MCG TABLET PO SCH (06:37)
[2017-12-02] MEDS: PANTOPRAZOLE 40MG DR TABLET PO SCH (06:37)
[2017-12-02] MEDS: INSULIN LISPRO 100 UNITS/ML SUBCUT SCH ×4 (07:20→20:53)
[2017-12-02] MEDS: GLIMEPIRIDE 1MG TABLET PO SCH ×2 (08:49→16:52)
[2017-12-02] MEDS: POTASSIUM CHLORIDE 20MEQ TABLET SR PO SCH (08:50)
[2017-12-02] MEDS: DONEPEZIL HCL 5MG TABLET PO SCH (08:50)
[2017-12-02] MEDS: FUROSEMIDE 40MG/4ML VIAL IVP SCH (08:50)
[2017-12-02] MEDS: FERROUS SULFATE 325MG TABLET PO SCH ×2 (08:50→16:57)
[2017-12-02] MEDS: DOPAMINE 800MG PREMIX 250 ML IV SCH (12:53)
[2017-12-02] MEDS: DOBUTAMINE HCL 500 MG in DEXTROSE 5% WATER 250 ML IV SCH (20:27)
[2017-12-02] MEDS: CITALOPRAM HYDROBROMIDE 10MG TABLET PO SCH (20:32)
[2017-12-02] MEDS: ATORVASTATIN CALCIUM 10MG TABLET PO SCH (20:32)
[2017-12-02] MEDS: INSULIN GLARGINE UD 100 UNITS/ML SYR SUBCUT SCH (20:54)
[2017-12-03] VITALS (11 sets, daily range): BP systolic 89–119; BP diastolic 28–54
[2017-12-03] MEDS: BLOOD SUGAR DIAGNOSTIC STRIP TEST SCH ×4 (05:33→20:15)
[2017-12-03] MEDS: INSULIN LISPRO 100 UNITS/ML SUBCUT SCH ×4 (05:34→21:24)
[2017-12-03 06:42] LABS: AMMONIA 43 uMol/L (<32)
[2017-12-03 06:44] LABS: BASOPHILS % 0.3 % (0.0-2.0); EOSINOPHILS % 1.4 % (0.0-5.0); HEMATOCRIT. 27.4 % (36.0-48.0); HEMOGLOBIN. 8.9 g/dL (12.0-16.0); LYMPHOCYTES % 9.1 % (20.0-50.0); MEAN CORPUSCULAR HEMOGLOBIN 26.8 pg (28.0-32.0); MEAN CORPUSCULAR VOLUME 82.1 fL (81.0-99.0); MEAN PLATELET VOLUME 7.6 fl (7.4-10.4); MONOCYTES % 10.4 % (2.0-8.0); NEUTROPHILS % 78.8 % (40.0-76.0); PLATELET 154 x1000/uL (130-400); RED BLOOD CELL COUNT 3.34 mill/uL (4.2-5.4); RED CELL DISTRIBUTION WIDTH 15.2 % (11.6-14.6)
[2017-12-03] MEDS: LEVOTHYROXINE SODIUM 88MCG TABLET PO SCH (06:57)
[2017-12-03] MEDS: GLIMEPIRIDE 1MG TABLET PO SCH ×2 (07:20→16:58)
[2017-12-03 07:37] LABS: AMYLASE 73 IU/L (25-115)
[2017-12-03] MEDS: POTASSIUM CHLORIDE 20MEQ TABLET SR PO SCH (08:01)
[2017-12-03] MEDS: FUROSEMIDE 40MG/4ML VIAL IVP SCH (08:01)
[2017-12-03] MEDS: FAMOTIDINE 20MG TABLET PO SCH (08:01)
[2017-12-03] MEDS: FERROUS SULFATE 325MG TABLET PO SCH ×2 (08:01→16:58)
[2017-12-03] MEDS: DONEPEZIL HCL 5MG TABLET PO SCH (08:01)
[2017-12-03 08:16] LABS: CHLORIDE 96 mEq/L (98-107)
[2017-12-03] MEDS ORDERED: ALBUTEROL (0.083%) 2.5MG/3ML NEB HHN NR (08:45)
[2017-12-03] MEDS: DOPAMINE 800MG PREMIX 250 ML IV SCH (12:34)
[2017-12-03] MEDS: ATORVASTATIN CALCIUM 10MG TABLET PO SCH (20:14)
[2017-12-03] MEDS: CITALOPRAM HYDROBROMIDE 10MG TABLET PO SCH (20:14)
[2017-12-03] MEDS: INSULIN GLARGINE UD 100 UNITS/ML SYR SUBCUT SCH (21:23)
[2017-12-03] MEDS: DOBUTAMINE HCL 500 MG in DEXTROSE 5% WATER 250 ML IV SCH (23:44)
[2017-12-04] VITALS (15 sets, daily range): BP systolic 90–141; BP diastolic 39–68
[2017-12-04] MEDS: LEVOTHYROXINE SODIUM 88MCG TABLET PO SCH (06:43)
[2017-12-04] MEDS: BLOOD SUGAR DIAGNOSTIC STRIP TEST SCH ×4 (07:06→21:19)
[2017-12-04] MEDS: INSULIN LISPRO 100 UNITS/ML SUBCUT SCH ×4 (07:06→21:00)
[2017-12-04 08:00] LABS: BASOPHILS % 0.4 % (0.0-2.0); EOSINOPHILS % 0.7 % (0.0-5.0); HEMATOCRIT. 28.7 % (36.0-48.0); HEMOGLOBIN. 9.3 g/dL (12.0-16.0); LYMPHOCYTES % 7.3 % (20.0-50.0); MEAN CORPUSCULAR HEMOGLOBIN 26.5 pg (28.0-32.0); MEAN CORPUSCULAR VOLUME 81.5 fL (81.0-99.0); MEAN PLATELET VOLUME 7.6 fl (7.4-10.4); MONOCYTES % 10.2 % (2.0-8.0); NEUTROPHILS % 81.4 % (40.0-76.0); PLATELET 161 x1000/uL (130-400); RED BLOOD CELL COUNT 3.52 mill/uL (4.2-5.4); RED CELL DISTRIBUTION WIDTH 15.5 % (11.6-14.6)
[2017-12-04] MEDS: DONEPEZIL HCL 5MG TABLET PO SCH (08:03)
[2017-12-04] MEDS: FUROSEMIDE 40MG/4ML VIAL IVP SCH (08:03)
[2017-12-04] MEDS: FERROUS SULFATE 325MG TABLET PO SCH ×2 (08:03→17:20)
[2017-12-04] MEDS: GLIMEPIRIDE 1MG TABLET PO SCH ×2 (08:03→17:20)
[2017-12-04] MEDS: FAMOTIDINE 20MG TABLET PO SCH (08:03)
[2017-12-04 08:07] LABS: CHLORIDE 96 mEq/L (98-107)
[2017-12-04 08:17] LABS: AMYLASE 93 IU/L (25-115)
[2017-12-04] MEDS: DOPAMINE 800MG PREMIX 250 ML IV SCH (11:50)
[2017-12-04 16:33] LABS: AMMONIA 33 uMol/L (<32)
[2017-12-04] MEDS: INSULIN GLARGINE UD 100 UNITS/ML SYR SUBCUT SCH (21:20)
[2017-12-04] MEDS: ATORVASTATIN CALCIUM 10MG TABLET PO SCH (21:20)
[2017-12-04] MEDS: CITALOPRAM HYDROBROMIDE 10MG TABLET PO SCH (21:20)
[2017-12-05] VITALS (13 sets, daily range): BP systolic 100–123; BP diastolic 40–64
[2017-12-05] MEDS: DOBUTAMINE HCL 500 MG in DEXTROSE 5% WATER 250 ML IV SCH (02:08)
[2017-12-05] MEDS: BLOOD SUGAR DIAGNOSTIC STRIP TEST SCH ×3 (06:02→17:16)
[2017-12-05] MEDS: LEVOTHYROXINE SODIUM 88MCG TABLET PO SCH (06:02)
[2017-12-05 06:48] LABS: BASOPHILS % 0.9 % (0.0-2.0); EOSINOPHILS % 2.8 % (0.0-5.0); HEMATOCRIT. 29.1 % (36.0-48.0); HEMOGLOBIN. 9.7 g/dL (12.0-16.0); LYMPHOCYTES % 12.1 % (20.0-50.0); MEAN CORPUSCULAR HEMOGLOBIN 26.9 pg (28.0-32.0); MEAN CORPUSCULAR VOLUME 80.9 fL (81.0-99.0); MEAN PLATELET VOLUME 7.1 fl (7.4-10.4); MONOCYTES % 11.7 % (2.0-8.0); NEUTROPHILS % 72.5 % (40.0-76.0); PLATELET 174 x1000/uL (130-400); RED CELL DISTRIBUTION WIDTH 15.6 % (11.6-14.6)
[2017-12-05] MEDS: INSULIN LISPRO 100 UNITS/ML SUBCUT SCH ×3 (07:20→17:20)
[2017-12-05] MEDS: FAMOTIDINE 20MG TABLET PO SCH (08:03)
[2017-12-05] MEDS: FERROUS SULFATE 325MG TABLET PO SCH ×2 (08:03→17:00)
[2017-12-05] MEDS: FUROSEMIDE 40MG/4ML VIAL IVP SCH (08:03)
[2017-12-05] MEDS: DONEPEZIL HCL 5MG TABLET PO SCH (08:03)
[2017-12-05] MEDS: GLIMEPIRIDE 1MG TABLET PO SCH (08:03)
[2017-12-05] MEDS ORDERED: INSULIN GLARGINE UD 100 UNITS/ML SYR SUBCUT SCH ×2 (22:00)
== END 2017-12-05 17:44 | disposition home or self-care (01) | DRG 432 ==
LOC: ER 11:49 → 3WST 13:29 → EDBEDREQ 13:38 → EDBEDREQSVC 14:20 → EDBEDREQ 14:20 → EDBEDREQTM 14:20 → ENRESERV 18:09
PROVIDERS: ADMIT Specialist; ATTEND Specialist
PROC: 02HV33Z Insertion of Infusion Device into Superior Vena Cava, Percutaneous Approach (ICD-10-PCS; principal; 2017-11-30)
PROC: B5181ZA Fluoroscopy of Superior Vena Cava using Low Osmolar Contrast, Guidance (ICD-10-PCS; 2017-11-30)
PROC: B548ZZA Ultrasonography of Superior Vena Cava, Guidance (ICD-10-PCS; 2017-11-30)
PROC: 0W9G3ZZ Drainage of Peritoneal Cavity, Percutaneous Approach (ICD-10-PCS; 2017-12-01)
PROC: 0W9G3ZZ Drainage of Peritoneal Cavity, Percutaneous Approach (ICD-10-PCS; 2017-12-03)
DX: K74.60 Unspecified cirrhosis of liver (principal); I50.23 Acute on chronic systolic (congestive) heart failure; E43 Unspecified severe protein-calorie malnutrition; J96.22 Acute and chronic respiratory failure with hypercapnia; K85.00 Idiopathic acute pancreatitis without necrosis or infection; N17.9 Acute kidney failure, unspecified; R18.8 Other ascites; E87.1 Hypo-osmolality and hyponatremia; I42.0 Dilated cardiomyopathy; D68.9 Coagulation defect, unspecified; I13.0 Hypertensive heart and chronic kidney disease with heart failure and stage 1 through stage 4 chronic kidney disease, or unspecified chronic kidney disease; M79.A3 Nontraumatic compartment syndrome of abdomen; I95.9 Hypotension, unspecified; E87.5 Hyperkalemia; E03.9 Hypothyroidism, unspecified; E11.65 Type 2 diabetes mellitus with hyperglycemia; Z68.24 Body mass index [BMI] 24.0-24.9, adult; D63.1 Anemia in chronic kidney disease; E11.22 Type 2 diabetes mellitus with diabetic chronic kidney disease; E11.649 Type 2 diabetes mellitus with hypoglycemia without coma; E78.5 Hyperlipidemia, unspecified; I25.5 Ischemic cardiomyopathy; I27.29 Other secondary pulmonary hypertension; I27.81 Cor pulmonale (chronic); I48.2 Chronic atrial fibrillation; I50.82 Biventricular heart failure; M81.0 Age-related osteoporosis without current pathological fracture; N18.9 Chronic kidney disease, unspecified; Z66 Do not resuscitate; Z79.01 Long term (current) use of anticoagulants; Z79.890 Hormone replacement therapy; Z90.49 Acquired absence of other specified parts of digestive tract; Z95.810 Presence of automatic (implantable) cardiac defibrillator; Z99.81 Dependence on supplemental oxygen; Z79.84 Long term (current) use of oral hypoglycemic drugs; Z79.899 Other long term (current) drug therapy
CPT/HCPCS: 36415; 36569; 36600; 49083; 71045; 76705; 76937; 77001; 80048; 80053; 80061; 80076; 82010; 82105; 82140; 82150; 82375; 82805; 82962; 83036; 83520; 83690; 83735; 84132; 84439; 84443; 85025; 85027; 85610; 86376; 90686; 93005; 93306; 96374; 96375; 99291; C1725; J1250; J1265; J1815; J1940; J2405; J3490; J7050; J7060; J7620

== ENCOUNTER 2018-03-04 11:31 | Inpatient (IN) | payer MEDICARE, MEDICAID ==
[~2018-03-04] VITALS: Ht 160 cm; Wt 54.9 kg
[~2018-03-04 11:31] MED LIST changes: +DEXL30CA3 PO; -DONE5TAB7 PO
[2018-03-04 13:11] LABS: BASOPHILS % 0.5 % (0.0-2.0); EOSINOPHILS % 0.4 % (0.0-5.0); HEMATOCRIT. 38.7 % (36.0-48.0); HEMOGLOBIN. 12.1 g/dL (12.0-16.0); LYMPHOCYTES % 10.6 % (20.0-50.0); MEAN CORPUSCULAR HEMOGLOBIN 25.8 pg (28.0-32.0); MEAN CORPUSCULAR VOLUME 82.9 fL (81.0-99.0); MEAN PLATELET VOLUME 7.7 fl (7.4-10.4); MONOCYTES % 7.6 % (2.0-8.0); NEUTROPHILS % 80.9 % (40.0-76.0); PLATELET 241 x1000/uL (130-400); RED BLOOD CELL COUNT 4.67 mill/uL (4.2-5.4); RED CELL DISTRIBUTION WIDTH 18.4 % (11.6-14.6)
[2018-03-04 13:18] LABS: CHLORIDE 82 mEq/L (98-107)
[2018-03-04 13:19] LABS: INR 1.1; PARTIAL THROMBOPLASTIN TIME 26.2 sec (23.4-31.0); PROTHROMBIN TIME 10.9 sec (9.1-11.1)
[2018-03-04] MEDS ORDERED: CEFTRIAXONE 1 G PREMIX 50 ML IV ONE (13:45)
[2018-03-04] MEDS ORDERED: FUROSEMIDE 40MG/4ML VIAL IVP ONE (13:45)
[2018-03-04] MEDS ORDERED: INSULIN REGULAR (HUMULIN R) 300UNITS/3ML SUBCUT ONE (13:45)
[2018-03-04] MEDS ORDERED: IPRATROPIUM/ALBUTEROL 0.5-3(2.5)MG/3ML NEB INH PRN (14:15)
[2018-03-04] MEDS ORDERED: ONDANSETRON HCL 4MG/2ML INJ IV PRN (14:15)
[2018-03-04] MEDS ORDERED: LORAZEPAM 1MG TABLET PO PRN (14:15)
[2018-03-04] MEDS ORDERED: DIPHENHYDRAMINE 50MG/ML VIAL IV PRN (14:15)
[2018-03-04] MEDS ORDERED: MAGNESIUM/ALUMINUM HYDROXIDE/SIMETHICONE 30ML UDC PO PRN (14:15)
[2018-03-04] MEDS ORDERED: MORPHINE SULFATE 10 MG/ML CPJ IV PRN (14:15)
[2018-03-04] MEDS ORDERED: CLONIDINE 0.1MG TABLET PO PRN (14:15)
[2018-03-04] MEDS ORDERED: GUAIFENESIN 200MG/10ML SUGAR FREE UDC PO PRN (14:15)
[2018-03-04] MEDS ORDERED: ACETAMINOPHEN 325MG TABLET PO PRN (14:15)
[2018-03-04] MEDS ORDERED: HYDROCODONE/ACETAMINOPHEN 5/325MG TABLET PO PRN (14:15)
[2018-03-04] MEDS ORDERED: LIDOCAINE HCL 1% 20ML VIAL (Pyxis) INJ ONE (14:17)
[2018-03-04] MEDS ORDERED: SODIUM BICARBONATE 4% (2.4MEQ) 5ML VIAL IV ONE (14:17)
[2018-03-04] MEDS ORDERED: HYDR-4001 PO (18:25)
[2018-03-04] MEDS ORDERED: ALD100 PO (18:25)
[2018-03-04] MEDS ORDERED: DIAZ5TAB MT (18:25)
[2018-03-04 18:26] VITALS: BP 129/82
[2018-03-04 18:31] VITALS: BP 110/52
[2018-03-04] MEDS: BLOOD SUGAR DIAGNOSTIC STRIP TEST SCH ×2 (18:50→20:57)
[2018-03-04] MEDS: INSULIN LISPRO 100 UNITS/ML SUBCUT SCH ×2 (18:56→21:08)
[2018-03-04 20:00] VITALS: BP 111/66
[2018-03-04] MEDS: DIAZEPAM 5 MG TABLET PO SCH (21:05)
[2018-03-04] MEDS: ENOXAPARIN 30MG/0.3ML SYR SUBCUT SCH (21:06)
[2018-03-04 22:00] VITALS: BP 103/61
[2018-03-05] VITALS (10 sets, daily range): BP systolic 92–125; BP diastolic 22–99
[2018-03-05] MEDS: DEXTROSE 50% WATER 50ML SYRINGE IV PRN ×3 (01:26→04:03)
[2018-03-05 02:20] LABS: BG CARBOXYHEMOGLOBIN 0.1 % (0.5-1.5); BG DEOXYHEMOGLOBIN 1.3 % (0.0-5.0); BG FRACTION INSPIRED OXYGEN 32; BG HCO3 ACT 37.9 mmol/L (22.0-26.0); BG METHEMOGLOBIN 0.4 % (0.0-1.5); BG OXYGEN SATURATION 98.7 % (92.0-98.5); BG OXYHEMOGLOBIN 98.2 % (94.0-97.0); BG PCO2 63.2 mmHg (35.0-45.0); BG PH 7.396 (7.350-7.450); BG SAMPLE SITE RIGHT BRACHIAL; BG TOTAL HEMOGLOBIN 11.3 g/dL (12.0-18.0); BG VENT MODE NASAL CANNULA
[2018-03-05] MEDS: OMEPRAZOLE 20MG CAPSULE EXTENDED RELEASE PO SCH (06:44)
[2018-03-05] MEDS: BLOOD SUGAR DIAGNOSTIC STRIP TEST SCH ×4 (06:52→21:25)
[2018-03-05 07:15] LABS: CHLORIDE 86 mEq/L (98-107)
[2018-03-05] MEDS: INSULIN LISPRO 100 UNITS/ML SUBCUT SCH ×5 (07:20→21:00)
[2018-03-05 07:24] LABS: LDL CHOLESTEROL 80 mg/dL (5-100)
[2018-03-05 07:27] LABS: HDL CHOLESTEROL 55 mg/dL (40-59)
[2018-03-05 07:31] LABS: BASOPHILS % 0.5 % (0.0-2.0); EOSINOPHILS % 0.7 % (0.0-5.0); HEMATOCRIT. 37.5 % (36.0-48.0); HEMOGLOBIN. 11.9 g/dL (12.0-16.0); LYMPHOCYTES % 7.7 % (20.0-50.0); MEAN CORPUSCULAR HEMOGLOBIN 25.5 pg (28.0-32.0); MEAN CORPUSCULAR VOLUME 79.9 fL (81.0-99.0); MONOCYTES % 7.6 % (2.0-8.0); NEUTROPHILS % 83.5 % (40.0-76.0); RED BLOOD CELL COUNT 4.69 mill/uL (4.2-5.4); RED CELL DISTRIBUTION WIDTH 17.4 % (11.6-14.6)
[2018-03-05] MEDS: FUROSEMIDE 40MG/4ML VIAL IV SCH (09:34)
[2018-03-05 19:36] LABS: CLARITY URINE CLEAR (CLEAR); COLOR URINE YELLOW (YELLOW); KETONES URINE NEGATIVE (NEGATIVE); LEUKOCYTE ESTERASE URINE 3+ (NEGATIVE); NITRITE URINE NEGATIVE (NEGATIVE); OCCULT BLOOD URINE TRACE (NEGATIVE); PH URINE 6.5 (4.5-8.0); PROTEIN URINE NEGATIVE (NEGATIVE); SPECIFIC GRAVITY URINE 1.009 (1.005-1.030); UROBILINOGEN URINE 0.2 E.U./dL (0.2-1.0)
[2018-03-05] MEDS: DOCUSATE SODIUM 100MG CAPSULE PO PRN (22:00)
[2018-03-05] MEDS: ENOXAPARIN 30MG/0.3ML SYR SUBCUT SCH (22:01)
[2018-03-05] MEDS: INSULIN GLARGINE UD 100 UNITS/ML SYR SUBCUT SCH (22:02)
[2018-03-05] MEDS: BISACODYL 10MG SUPP PR PRN (23:10)
[2018-03-06] VITALS (15 sets, daily range): BP systolic 93–138; BP diastolic 42–67
[2018-03-06] MEDS: DIAZEPAM 5 MG TABLET PO SCH ×2 (00:15→20:49)
[2018-03-06 06:18] LABS: BASOPHILS % 0.5 % (0.0-2.0); EOSINOPHILS % 0.4 % (0.0-5.0); HEMATOCRIT. 32.8 % (36.0-48.0); HEMOGLOBIN. 10.7 g/dL (12.0-16.0); LYMPHOCYTES % 10.5 % (20.0-50.0); MEAN CORPUSCULAR HEMOGLOBIN 25.7 pg (28.0-32.0); MEAN CORPUSCULAR VOLUME 78.6 fL (81.0-99.0); MEAN PLATELET VOLUME 7.6 fl (7.4-10.4); MONOCYTES % 8.4 % (2.0-8.0); NEUTROPHILS % 80.2 % (40.0-76.0); PLATELET 249 x1000/uL (130-400); RED BLOOD CELL COUNT 4.17 mill/uL (4.2-5.4); RED CELL DISTRIBUTION WIDTH 17.8 % (11.6-14.6)
[2018-03-06] MEDS: BLOOD SUGAR DIAGNOSTIC STRIP TEST SCH ×4 (06:26→20:57)
[2018-03-06] MEDS: OMEPRAZOLE 20MG CAPSULE EXTENDED RELEASE PO SCH (06:28)
[2018-03-06] MEDS ORDERED: LEVOTHYROXINE SODIUM 100MCG TABLET PO SCH (06:50)
[2018-03-06 07:12] LABS: CHLORIDE 90 mEq/L (98-107)
[2018-03-06] MEDS: INSULIN LISPRO 100 UNITS/ML SUBCUT SCH ×4 (07:20→21:26)
[2018-03-06 07:25] LABS: T4 FREE 0.37 ng/dL (0.76-1.46)
[2018-03-06] MEDS: METOLAZONE 2.5MG TABLET PO SCH (08:20)
[2018-03-06] MEDS: FUROSEMIDE 40MG/4ML VIAL IV SCH (08:20)
[2018-03-06] MEDS ORDERED: SPIRONOLACTONE 25MG TABLET PO SCH (09:00)
[2018-03-06] MEDS ORDERED: SODIUM BICARBONATE 4% (2.4MEQ) 5ML VIAL IV ONE (11:28)
[2018-03-06] MEDS ORDERED: LIDOCAINE HCL 1% 20ML VIAL (Pyxis) INJ ONE (11:29)
[2018-03-06] MEDS: CEFTRIAXONE 1 G PREMIX 50 ML IV SCH (16:32)
[2018-03-06] MEDS ORDERED: MORPHINE SULFATE 4 MG/ML CPJ (NOT FOR IM USE) IV PRN (18:17)
[2018-03-06] MEDS: LEVOTHYROXINE SODIUM 100 MCG/ VIAL IV SCH (20:48)
[2018-03-06] MEDS: LIOTHYRONINE SODIUM 5MCG TABLET PO SCH (20:49)
[2018-03-06] MEDS: DOCUSATE SODIUM 100MG CAPSULE PO PRN (21:25)
[2018-03-06] MEDS: INSULIN GLARGINE UD 100 UNITS/ML SYR SUBCUT SCH (21:27)
[2018-03-07] VITALS (15 sets, daily range): BP systolic 87–114; BP diastolic 42–92
[2018-03-07] MEDS: DEXTROSE 50% WATER 50ML SYRINGE IV PRN (04:25)
[2018-03-07] MEDS: OMEPRAZOLE 20MG CAPSULE EXTENDED RELEASE PO SCH (06:10)
[2018-03-07] MEDS: BLOOD SUGAR DIAGNOSTIC STRIP TEST SCH ×4 (06:10→21:06)
[2018-03-07 06:53] LABS: BASOPHILS % 0.7 % (0.0-2.0); EOSINOPHILS % 0.4 % (0.0-5.0); HEMATOCRIT. 35.2 % (36.0-48.0); HEMOGLOBIN. 11.2 g/dL (12.0-16.0); LYMPHOCYTES % 10.6 % (20.0-50.0); MEAN CORPUSCULAR HEMOGLOBIN 25.4 pg (28.0-32.0); MEAN PLATELET VOLUME 7.4 fl (7.4-10.4); MONOCYTES % 10.7 % (2.0-8.0); NEUTROPHILS % 77.6 % (40.0-76.0); PLATELET 209 x1000/uL (130-400); RED CELL DISTRIBUTION WIDTH 17.5 % (11.6-14.6)
[2018-03-07 07:12] LABS: PHOSPHORUS 2.9 mg/dL (2.5-4.9)
[2018-03-07] MEDS: INSULIN LISPRO 100 UNITS/ML SUBCUT SCH ×4 (07:20→21:12)
[2018-03-07] MEDS: DOCUSATE SODIUM 100MG CAPSULE PO PRN (09:09)
[2018-03-07] MEDS: METOLAZONE 2.5MG TABLET PO SCH (09:09)
[2018-03-07] MEDS: LIOTHYRONINE SODIUM 5MCG TABLET PO SCH ×2 (09:09→16:58)
[2018-03-07] MEDS: LEVOTHYROXINE SODIUM 100 MCG/ VIAL IV SCH (09:09)
[2018-03-07] MEDS: FUROSEMIDE 40MG/4ML VIAL IV SCH (09:09)
[2018-03-07] MEDS: INSULIN GLARGINE UD 100 UNITS/ML SYR SUBCUT SCH ×4 (11:13→21:19)
[2018-03-07] MEDS: BISACODYL 10MG SUPP PR PRN (11:14)
[2018-03-07] MEDS ORDERED: LACTULOSE 20G/30ML UDC PO NR (11:30)
[2018-03-07] MEDS: CEFTRIAXONE 1 G PREMIX 50 ML IV SCH (16:17)
[2018-03-07] MEDS ORDERED: MAGNESIUM CITRATE 300ML SOLUTION PO NR (18:00)
[2018-03-07] MEDS: BISACODYL 5MG TABLET PO SCH (19:02)
[2018-03-07] MEDS: DIAZEPAM 5 MG TABLET PO SCH (21:07)
[2018-03-08] VITALS (11 sets, daily range): BP systolic 94–131; BP diastolic 33–67
[2018-03-08] MEDS: DEXTROSE 50% WATER 50ML SYRINGE IV PRN (07:04)
[2018-03-08] MEDS: BLOOD SUGAR DIAGNOSTIC STRIP TEST SCH ×4 (07:07→21:00)
[2018-03-08] MEDS: OMEPRAZOLE 20MG CAPSULE EXTENDED RELEASE PO SCH (07:07)
[2018-03-08] MEDS: LEVOTHYROXINE SODIUM 100 MCG/ VIAL IV SCH (07:07)
[2018-03-08] MEDS: INSULIN LISPRO 100 UNITS/ML SUBCUT SCH ×4 (07:08→21:00)
[2018-03-08 07:20] LABS: BASOPHILS % 0.6 % (0.0-2.0); EOSINOPHILS % 0.7 % (0.0-5.0); HEMATOCRIT. 33.5 % (36.0-48.0); HEMOGLOBIN. 10.6 g/dL (12.0-16.0); LYMPHOCYTES % 18.9 % (20.0-50.0); MEAN CORPUSCULAR HEMOGLOBIN 25.3 pg (28.0-32.0); MEAN CORPUSCULAR VOLUME 79.6 fL (81.0-99.0); MEAN PLATELET VOLUME 7.3 fl (7.4-10.4); MONOCYTES % 9.8 % (2.0-8.0); PLATELET 232 x1000/uL (130-400); RED BLOOD CELL COUNT 4.21 mill/uL (4.2-5.4); RED CELL DISTRIBUTION WIDTH 17.6 % (11.6-14.6)
[2018-03-08] MEDS: LIOTHYRONINE SODIUM 5MCG TABLET PO SCH ×2 (08:39→17:50)
[2018-03-08] MEDS: FUROSEMIDE 40MG/4ML VIAL IV SCH (08:39)
[2018-03-08] MEDS: POTASSIUM CHLORIDE 20MEQ TABLET SR PO SCH (08:40)
[2018-03-08] MEDS: BISACODYL 5MG TABLET PO SCH (08:40)
[2018-03-08] MEDS: DOCUSATE SODIUM 100MG CAPSULE PO PRN (08:40)
[2018-03-08] MEDS: METOLAZONE 2.5MG TABLET PO SCH (08:40)
[2018-03-08] MEDS ORDERED: SORBITOL 70% SOLN 30ML PO NR (09:00)
[2018-03-08] MEDS ORDERED: PHENYLEPHRINE/SHK LV/MO/PET,WH RECTAL OINT 28GM PR PRN (12:00)
[2018-03-08] MEDS ORDERED: SODIUM BICARBONATE 4% (2.4MEQ) 5ML VIAL IV ONE (13:01)
[2018-03-08] MEDS ORDERED: LIDOCAINE HCL 1% 20ML VIAL (Pyxis) INJ ONE (13:02)
[2018-03-08] MEDS: CEFTRIAXONE 1 G PREMIX 50 ML IV SCH (16:25)
[2018-03-08] MEDS: DIAZEPAM 5 MG TABLET PO SCH (21:02)
[2018-03-09] VITALS: BP 96/53
[2018-03-09 04:00] VITALS: BP 101/56
[2018-03-09] MEDS: DEXTROSE 50% WATER 50ML SYRINGE IV PRN (05:51)
[2018-03-09] MEDS: LEVOTHYROXINE SODIUM 100 MCG/ VIAL IV SCH (06:19)
[2018-03-09] MEDS: OMEPRAZOLE 20MG CAPSULE EXTENDED RELEASE PO SCH (06:21)
[2018-03-09 06:26] LABS: BASOPHILS % 0.9 % (0.0-2.0); EOSINOPHILS % 0.8 % (0.0-5.0); HEMATOCRIT. 33.4 % (36.0-48.0); HEMOGLOBIN. 10.7 g/dL (12.0-16.0); LYMPHOCYTES % 15.9 % (20.0-50.0); MEAN CORPUSCULAR HEMOGLOBIN 25.5 pg (28.0-32.0); MEAN CORPUSCULAR VOLUME 79.5 fL (81.0-99.0); MEAN PLATELET VOLUME 7.3 fl (7.4-10.4); MONOCYTES % 12.6 % (2.0-8.0); NEUTROPHILS % 69.8 % (40.0-76.0); PLATELET 232 x1000/uL (130-400); RED CELL DISTRIBUTION WIDTH 17.7 % (11.6-14.6)
[2018-03-09] MEDS: BLOOD SUGAR DIAGNOSTIC STRIP TEST SCH ×2 (06:50→11:15)
[2018-03-09] MEDS: INSULIN LISPRO 100 UNITS/ML SUBCUT SCH (07:20)
[2018-03-09 08:00] VITALS: BP 103/47
[2018-03-09] MEDS: LIOTHYRONINE SODIUM 5MCG TABLET PO SCH (08:15)
[2018-03-09] MEDS: METOLAZONE 2.5MG TABLET PO SCH (08:15)
[2018-03-09] MEDS: POTASSIUM CHLORIDE 20MEQ TABLET SR PO SCH (08:15)
[2018-03-09] MEDS: BISACODYL 5MG TABLET PO SCH (08:16)
[2018-03-09] MEDS: FUROSEMIDE 40MG/4ML VIAL IV SCH (09:00)
[2018-03-09 10:00] VITALS: BP 94/56
[2018-03-09 11:45] VITALS: BP 103/60
[2018-03-09 12:05] VITALS: BP 107/49
== END 2018-03-09 12:30 | disposition home or self-care (01) | DRG 291 ==
LOC: ER 11:31 → 3WST 13:40 → EDBEDREQSVC 14:30 → ENRESERV 16:49
PROVIDERS: ADMIT Specialist; ATTEND Specialist
PROC: 0W9G3ZZ Drainage of Peritoneal Cavity, Percutaneous Approach (ICD-10-PCS; principal; 2018-03-04)
PROC: 0W9G3ZZ Drainage of Peritoneal Cavity, Percutaneous Approach (ICD-10-PCS; 2018-03-06)
PROC: 0W9G3ZZ Drainage of Peritoneal Cavity, Percutaneous Approach (ICD-10-PCS; 2018-03-08)
DX: I13.0 Hypertensive heart and chronic kidney disease with heart failure and stage 1 through stage 4 chronic kidney disease, or unspecified chronic kidney disease (principal); I50.23 Acute on chronic systolic (congestive) heart failure; J18.9 Pneumonia, unspecified organism; R18.8 Other ascites; E87.1 Hypo-osmolality and hyponatremia; I42.9 Cardiomyopathy, unspecified; I48.2 Chronic atrial fibrillation; E03.9 Hypothyroidism, unspecified; I27.29 Other secondary pulmonary hypertension; I50.84 End stage heart failure; N18.3 Chronic kidney disease, stage 3 (moderate); E11.65 Type 2 diabetes mellitus with hyperglycemia; E11.22 Type 2 diabetes mellitus with diabetic chronic kidney disease; I25.10 Atherosclerotic heart disease of native coronary artery without angina pectoris; J44.9 Chronic obstructive pulmonary disease, unspecified; I27.81 Cor pulmonale (chronic); I50.82 Biventricular heart failure; K59.00 Constipation, unspecified; K76.1 Chronic passive congestion of liver; M81.0 Age-related osteoporosis without current pathological fracture; L89.159 Pressure ulcer of sacral region, unspecified stage; L89.019 Pressure ulcer of right elbow, unspecified stage; Z95.810 Presence of automatic (implantable) cardiac defibrillator
CPT/HCPCS: 36415; 36600; 49083; 71045; 74018; 76705; 80048; 80061; 82040; 82375; 82805; 82962; 83036; 83735; 83880; 84100; 84134; 84145; 84439; 84443; 84481; 84484; 93005; 93970; 96365; 96375; 99285; J0696; J1650; J1815; J1940; J3490; J7050